=== PATIENT | male | born 1950 ===

== ENCOUNTER → 2023-02-10 | Outpatient (CLI) | payer MEDICARE, OTHER ==
[~2023-02-10] VITALS: Ht 170.2 cm; Wt 75.0 kg
[~2023-02-10] MED LIST: ASPI-1450 PO; EMPA10TA3 PO; FINA-27 PO; LOSA-382 PO; METF-1211 PO; METO25XL PO
[2023-02-10 08:41] VITALS: BP 122/66
== END | disposition home or self-care (01) ==
LOC: SRCNTR 08:21
PROVIDERS: ATTEND Internal Medicine
DX: R91.1 Solitary pulmonary nodule (principal); A15.9 Respiratory tuberculosis unspecified; I10 Essential (primary) hypertension; E11.9 Type 2 diabetes mellitus without complications; J45.909 Unspecified asthma, uncomplicated; Z85.118 Personal history of other malignant neoplasm of bronchus and lung
CPT/HCPCS: G0463; Z7500

== ENCOUNTER → 2023-04-07 | Outpatient (CLI) | payer MEDICARE, OTHER ==
[~2023-04-07] VITALS: Ht 170.2 cm; Wt 78.0 kg
[~2023-04-07] MED LIST changes: +SEMA0.258 SQ
[2023-04-07 09:54] VITALS: BP 113/70; PULSE 78; RESP 17; TEMP 98.2; O2SAT 94
== END | disposition home or self-care (01) ==
LOC: SRCNTR 09:24
PROVIDERS: ATTEND Internal Medicine
DX: R91.1 Solitary pulmonary nodule (principal); A15.0 Tuberculosis of lung; J45.909 Unspecified asthma, uncomplicated; E11.9 Type 2 diabetes mellitus without complications; I10 Essential (primary) hypertension; C34.31 Malignant neoplasm of lower lobe, right bronchus or lung
CPT/HCPCS: G0463

== ENCOUNTER → 2023-08-07 | Outpatient (CLI) | payer MEDICARE, OTHER ==
[~2023-08-07] VITALS: Ht 170.2 cm; Wt 74.0 kg
[~2023-08-07] MED LIST changes: +RANO500T27 PO
[2023-08-07 09:14] VITALS: BP 120/67; PULSE 96; RESP 17; TEMP 98.3; O2SAT 96
== END | disposition home or self-care (01) ==
LOC: SRCNTR 08:56
PROVIDERS: ATTEND Internal Medicine
DX: I10 Essential (primary) hypertension (principal); E11.9 Type 2 diabetes mellitus without complications; K21.9 Gastro-esophageal reflux disease without esophagitis
CPT/HCPCS: G0463; Z7500

== ENCOUNTER → 2024-01-28 | Outpatient (CLI) | payer MEDICARE, OTHER ==
[~2024-01-28] VITALS: Ht 170.2 cm; Wt 71.0 kg
[2024-01-28 09:29] VITALS: BP 119/67; PULSE 19; RESP 19; TEMP 97.9; O2SAT 95
== END | disposition home or self-care (01) ==
LOC: SRCNTR 09:11
PROVIDERS: ATTEND Internal Medicine
DX: A15.0 Tuberculosis of lung (principal); R91.1 Solitary pulmonary nodule; I10 Essential (primary) hypertension; E11.9 Type 2 diabetes mellitus without complications
CPT/HCPCS: G0463